=== PATIENT | female | born 1990 | race Caucasian/White ===

== ENCOUNTER 2017-09-23 07:59 | Inpatient (IN) | payer BC ==
[2017-09-23] MEDS: LACTATED RINGER'S 1,000 ML IV* (08:30)
[2017-09-23] MEDS: CEFAZOLIN 2 GM/50 ML (PMX) 50 ML IVPB (08:30)
[2017-09-23] MEDS ORDERED: GELATIN SIZE 100 SPONGE (09:49)
[2017-09-23] MEDS ORDERED: ACETAMINOPHEN 325 MG TAB PO (10:00)
[2017-09-23] MEDS ORDERED: HYDROmorphONE 0.5 MG/0.5 ML SYG IV (10:00)
[2017-09-23] MEDS ORDERED: NALOXONE (0.4 MG/ML) INJ IV (10:00)
[2017-09-23] MEDS ORDERED: ZOLPIDEM 5 MG TAB PO ×2 (10:00)
[2017-09-23] MEDS ORDERED: CEPASTAT LOZENGE MT (10:00)
[2017-09-23] MEDS ORDERED: BISACODYL 10 MG SUPP PR (10:00)
[2017-09-23] MEDS ORDERED: AL HYDROX/MG HYDROX/SIMETH 30 ML CUP PO (10:00)
[2017-09-23] MEDS ORDERED: CARISOPRODOL 350 MG TAB PO (10:00)
[2017-09-23] MEDS ORDERED: CEFAZOLIN 1 GM/50 ML (PMX) 50 ML IVPB (10:00)
[2017-09-23] MEDS ORDERED: DIPHENHYDRAMINE 50 MG INJ IV ×2 (10:00→12:30)
[2017-09-23] MEDS ORDERED: traMADol 50 MG TAB PO ×2 (10:00)
[2017-09-23] MEDS ORDERED: MIDAZOLAM 1 MG/ML 2 ML INJ (10:06)
[2017-09-23] MEDS: BUPIVACAINE 0.25%/EPI (SDV) 30 ML INJ (10:10)
[2017-09-23] MEDS: THROMBIN 5000 UNIT VIAL (11:06)
[2017-09-23] MEDS: SURGIFOAM POWDER 1 GM KIT (11:06)
[2017-09-23] MEDS: POLYMYXIN/BACITRACIN 1L IRRIG (11:07)
[2017-09-23] MEDS ORDERED: ROCURONIUM 50 MG INJ (12:06)
[2017-09-23] MEDS ORDERED: PROPOFOL 20 ML (12:06)
[2017-09-23] MEDS ORDERED: LIDOCAINE 2% (SDV) 5 ML INJ (12:06)
[2017-09-23] MEDS ORDERED: NEOSTIGMINE 3 MG/3 ML SYRINGE (12:07)
[2017-09-23] MEDS ORDERED: GLYCOPYRROLATE 0.4 MG INJ (12:07)
[2017-09-23] MEDS ORDERED: ONDANSETRON 4 MG INJ (12:07)
[2017-09-23] MEDS ORDERED: METOCLOPRAMIDE 10 MG INJ (12:11)
[2017-09-23] MEDS ORDERED: HYDROmorphONE (0.2 MG/ML) 10ML SYG IV ×2 (12:30→12:38)
[2017-09-23] MEDS ORDERED: FENTAnyl 50 MCG/ML VIAL IV (12:30)
[2017-09-23] MEDS ORDERED: METOCLOPRAMIDE 10 MG INJ IV (12:30)
[2017-09-23] MEDS ORDERED: MEPERIDINE 25 MG INJ (12:38)
[2017-09-23] MEDS: MEPERIDINE 25 MG INJ IV (12:42)
[2017-09-23] MEDS: HYDROmorphONE (0.2 MG/ML) 10ML SYG IV ×5 (12:43→13:30)
[2017-09-23] MEDS: ONDANSETRON 4 MG INJ IV ×2 (12:43→15:47)
[2017-09-23] MEDS: D5W-0.45 NACL + KCL 20 MEQ 1,000 ML IV (15:22)
[2017-09-23] MEDS: CEFAZOLIN 1 GM/50 ML (PMX) 50 ML IVPB (17:31)
[2017-09-23] MEDS ORDERED: DOCUSATE SODIUM 100 MG CAP PO (21:00)
== END 2017-09-23 20:00 | disposition home or self-care (01) | DRG 518 ==
LOC: REC 07:59 → MS1 14:20
PROC: 0RR30JZ Replacement of Cervical Vertebral Disc with Synthetic Substitute, Open Approach (ICD-10-PCS; principal; 2017-09-23 10:08)
PROC: 4A11X4G Monitoring of Peripheral Nervous Electrical Activity, Intraoperative, External Approach (ICD-10-PCS; 2017-09-23 10:08)
DX: M50.122 Cervical disc disorder at C5-C6 level with radiculopathy (principal); M48.02 Spinal stenosis, cervical region
CPT/HCPCS: 72052; 84703; 86999; 97162